=== PATIENT | female | born 1965 | race Caucasian/White ===

== ENCOUNTER 2017-09-21 17:44 | Emergency (ER) | payer OTHER ==
--- NOTE | 2017-09-21 17:54 | PDOC ---
Rapid Medical Evaluation Time Seen by Provider: 09/21/17 17:50 Medical Evaluation: Allergies Allergy/AdvReac Type Severity Reaction Status Date / Time No Known Drug Allergies Allergy Verified 12/23/12 14:53 I have performed a brief in-person evaluation of this patient. The patient presents with a chief complaint of: suprapubic, LLQ pain and diarrhea x 4 days Pertinent physical exam findings: suprapubic pain with palpation I have ordered the following: UA/culture, labs The patient will proceed to the ED for further evaluation.
[2017-09-21 17:55] VITALS: BP 124/76; PULSE 77; TEMP 98.1; BMI 31.9
[2017-09-21 18:09] LABS: BASO % 1.3 % (0-2.0); EOS % 3.3 % (0-4.5); HEMATOCRIT 42.2 % (32.4-45.2); MCH 28.9 pg (25.7-33.7); MCHC 33.1 g/dl (32.0-36.0); MEAN CELL VOLUME 87.1 fl (80-96); MEAN PLT VOLUME 9.3 fl (7.5-11.1); MONO % 4.8 % (3.8-10.2); NEUT % 55.6 % (42.8-82.8); PLATELET COUNT 208 K/MM3 (134-434); RBC 4.84 M/mm3 (3.60-5.2)
[2017-09-21 18:38] LABS: URINE APPEARANCE CLEAR; URINE BILIRUBIN NEGATIVE (NEGATIVE); URINE BLOOD NEGATIVE (NEGATIVE); URINE COLOR YELLOW; URINE GLUCOSE (UA) NEGATIVE (NEGATIVE); URINE KETONE TRACE (NEGATIVE); URINE LEUK ESTERASE NEGATIVE (NEGATIVE); URINE NITRITE NEGATIVE (NEGATIVE); URINE PROTEIN NEGATIVE (NEGATIVE); URINE UROBILINOGEN NEGATIVE mg/dL (0.2-1.0)
[2017-09-21 18:57] LABS: ALBUMIN 3.8 g/dl (3.4-5.0); ALK PHOS 132 U/L (45-117); ANION GAP 7 (8-16); BILIRUBIN,TOTAL 0.7 mg/dL (0.2-1.0); BLOOD UREA NITROGEN 12 mg/dL (7-18); CALCIUM 8.2 mg/dL (8.5-10.1); CHLORIDE 109 mmol/L (98-107); CO2 25 mmol/L (21-32); CREATININE 0.9 mg/dL (0.55-1.02); GLUCOSE,RANDOM 93 mg/dL (74-106); POTASSIUM 4.1 mmol/L (3.5-5.1); SGOT/AST 34 U/L (15-37); SGPT/ALT 35 U/L (12-78); SODIUM 141 mmol/L (136-145); TOT PROT 7.4 g/dl (6.4-8.2)
[2017-09-21] MEDS ORDERED: morphine CARPU-JECT 4 MG/1 ML DISP.SYRIN IVPUSH ONE (19:17)
[2017-09-21] MEDS ORDERED: SODIUM CHLORIDE 1,000 ML IV STA (19:17)
--- NOTE | 2017-09-21 19:21 | PDOC ---
History of Present Illness - General History Source: Patient Exam Limitations: No Limitations - History of Present Illness Initial Comments: 09/21/17 20:33 The patient is a 52 year old female, with a significant past medical history of hypertension, diabetes, chronic back pain, ovarian cysts, and gastritis, who presents to the emergency department with, four days of left lower quadrant pain. The patient describes her left lower quadrant pain as constant. Secondary to her symptoms, she reports a lack of appetite, soft stools, and a subjective fever. She denies recent chills, headache or dizziness. She denies recent nausea, vomit , or constipation. She denies recent dysuria, frequency, urgency or hematuria. She denies recent chest pain or shortness of breath. Allergies: NKA Social history: Nonsmoker. Denies EtOH use and recreational drug use. <Alexi Parada - Last Filed: 09/21/17 20:33> - General History Source: Patient, Family Exam Limitations: No Limitations <Chucho Curtis - Last Filed: 09/21/17 21:25> - General Chief Complaint: Pain, Acute Stated Complaint: ABD PAIN Time Seen by Provider: 09/21/17 17:50 Past History <Alexi Parada - Last Filed: 09/21/17 20:33> - Past Medical History Anemia: No Asthma: No Cancer: No Cardiac Disorders: No CVA: No COPD: No CHF: No Dementia: No Diabetes: No GI Disorders: Yes (GERD) Disorders: No HTN: Yes Hypercholesterolemia: No Liver Disease: No Seizures: No Thyroid Disease: No - Surgical History Abdominal Surgery: Yes (HERNIAS) Appendectomy: Yes Cardiac Surgery: No Cholecystectomy: Yes Lung Surgery: No Neurologic Surgery: No Orthopedic Surgery: Yes - Suicide/Smoking/Psychosocial Hx Smoking Status: Yes Smoking History: Current every day smoker Have you smoked in the past 12 months: Yes Number of Cigarettes Smoked Daily: 3 Information on smoking cessation initiated: No 'Breaking Loose' booklet given: 09/11/12 Hx Alcohol Use: Yes (RARELY) Drug/Substance Use Hx: No Substance Use Type: Alcohol Hx Substance Use Treatment: No <Chucho Curtis - Last Filed: 09/21/17 21:25> - Past Medical History Allergies/Adverse Reactions: Allergies Allergy/AdvReac Type Severity Reaction Status Date / Time No Known Drug Allergies Allergy Verified 09/21/17 17:51 Home Medications: Ambulatory Orders Candesartan Cilexetil [Atacand] 16 mg PO DAILY #0 09/12/12 Ibuprofen [Motrin -] 800 mg PO DAILY #0 09/12/12 Omeprazole [Prilosec (RX)] 40 mg PO DAILY #0 09/12/12 Ciprofloxacin [Cipro -] 500 mg PO Q12H #20 tablet 09/21/17 Metronidazole [Flagyl -] 500 mg PO Q8H #30 tablet 09/21/17 Naproxen 500 mg PO BID PRN #20 tablet 09/21/17 Oxycodone HCl/Acetaminophen [Percocet 5-325 mg Tablet] 1 tab PO Q6H PRN #15 tablet MDD 4 09/21/17 Review of Systems - Review of Systems Able to Perform ROS?: Yes Comments:: 09/21/17 20:33 GENERAL/CONSTITUTIONAL:+Subjective fever. +Lack of appetite. No chills. No weakness. HEAD, EYES, EARS, NOSE AND THROAT: No change in vision. No ear pain or discharge. No sore throat. CARDIOVASCULAR: No chest pain or shortness of breath. RESPIRATORY: No cough, wheezing, or hemoptysis. GASTROINTESTINAL: No nausea, vomiting, diarrhea or constipation. GENITOURINARY: No dysuria, frequency, or change in urination. MUSCULOSKELETAL: No joint or muscle swelling or pain. No neck or back pain. ABDOMEN: +Left lower quadrant pain. SKIN: No rash NEUROLOGIC: No headache, vertigo, loss of consciousness, or change in strength/ sensation. ENDOCRINE: No increased thirst. No abnormal weight change. HEMATOLOGIC/LYMPHATIC: No anemia, easy bleeding, or history of blood clots. ALLERGIC/IMMUNOLOGIC: No hives or skin allergy. All Other Systems: Reviewed and Negative <Alexi Parada - Last Filed: 09/21/17 20:33> *Physical Exam - Vital Signs Last Vital Signs Temp Pulse Resp BP Pulse Ox 98.1 F 77 18 124/76 99 09/21/17 17:52 09/21/17 17:52 09/21/17 17:52 09/21/17 17:52 09/21/17 17:52 - Physical Exam Comments: 09/21/17 20:34 GENERAL: +Uncomfortably appearing. Awake, alert, and fully oriented HEAD: No signs of trauma EYES: PERRLA, EOMI, sclera anicteric, conjunctiva clear NECK: Normal ROM, supple, no lymphadenopathy, JVD, or masses LUNGS: Breath sounds equal, clear to auscultation bilaterally. No wheezes, and no crackles HEART: Regular rate and rhythm, normal S1 and S2, no murmurs, rubs or gallops ABDOMEN: +Left lower quadrant pain to palpation. Soft, normoactive bowel sounds. No guarding, no rebound. No masses EXTREMITIES: Normal range of motion, no edema. No clubbing or cyanosis. No cords, erythema, or tenderness NEUROLOGICAL: Cranial nerves II through XII grossly intact. Normal speech. SKIN: Warm, Dry, normal turgor, no rashes or lesions noted. <Alexi Parada - Last Filed: 09/21/17 20:33> - Vital Signs Last Vital Signs Temp Pulse Resp BP Pulse Ox 98.1 F 77 18 124/76 99 09/21/17 17:52 09/21/17 17:52 09/21/17 17:52 09/21/17 17:52 09/21/17 17:52 <Chucho Curtis - Last Filed: 09/21/17 21:25> ED Treatment Course - LABORATORY CBC & Chemistry Diagram: 09/21/17 18:03 09/21/17 18:03 - ADDITIONAL ORDERS Additional order review: Laboratory Results 09/21/17 09/21/17 18:07 18:03 Sodium 141 Potassium 4.1 Chloride 109 H Carbon Dioxide 25 Anion Gap 7 L BUN 12 Creatinine 0.9 Creat Clearance w eGFR > 60 Random Glucose 93 Calcium 8.2 L Total Bilirubin 0.7 AST 34 ALT 35 Alkaline Phosphatase 132 H Total Protein 7.4 Albumin 3.8 Urine Color Yellow Urine Appearance Clear Urine pH 5.0 Ur Specific [place] 1.025 Urine Protein Negative Urine Glucose (UA) Negative Urine Ketones Trace H Urine Blood Negative Urine Nitrite Negative Urine Bilirubin Negative Urine Urobilinogen Negative Ur Leukocyte Esterase Negative 09/21/17 18:03 RBC 4.84 MCV 87.1 MCHC 33.1 RDW 14.0 MPV 9.3 Neutrophils % 55.6 Lymphocytes % 35.0 Monocytes % 4.8 Eosinophils % 3.3 Basophils % 1.3 - Medications Given in the ED: ED Medications Discontinued Medications Generic Name Dose Route Start Last Admin Trade Name Lisa PRN Reason Stop Dose Admin Sodium Chloride 1,000 mls @ 1,000 mls/hr 09/21/17 19:17 09/21/17 19:33 Normal Saline - IV 09/21/17 20:16 Not Given ASDIR STA Lactated Ringer's 1,000 ml 09/21/17 19:22 09/21/17 19:33 Lactated Ringers Solution IV 09/21/17 19:23 1,000 ml ONCE ONE Administration Morphine Sulfate 4 mg 09/21/17 19:17 09/21/17 19:36 Morphine Injection - IVPUSH 09/21/17 19:18 4 mg ONCE ONE Administration <Alexi Parada - Last Filed: 09/21/17 20:33> - LABORATORY CBC & Chemistry Diagram: 09/21/17 18:03 09/21/17 18:03 - ADDITIONAL ORDERS Additional order review: Laboratory Results 09/21/17 09/21/17 18:07 18:03 Sodium 141 Potassium 4.1 Chloride 109 H Carbon Dioxide 25 Anion Gap 7 L BUN 12 Creatinine 0.9 Creat Clearance w eGFR > 60 Random Glucose 93 Calcium 8.2 L Total Bilirubin 0.7 AST 34 ALT 35 Alkaline Phosphatase 132 H Total Protein 7.4 Albumin 3.8 Urine Color Yellow Urine Appearance Clear Urine pH 5.0 Ur Specific [place] 1.025 Urine Protein Negative Urine Glucose (UA) Negative Urine Ketones Trace H Urine Blood Negative Urine Nitrite Negative Urine Bilirubin Negative Urine Urobilinogen Negative Ur Leukocyte Esterase Negative 09/21/17 18:03 RBC 4.84 MCV 87.1 MCHC 33.1 RDW 14.0 MPV 9.3 Neutrophils % 55.6 Lymphocytes % 35.0 Monocytes % 4.8 Eosinophils % 3.3 Basophils % 1.3 - RADIOLOGY Radiology Studies Ordered: Category Date Time Status ABDOMEN & PELVIS CT WITH CONTR [CT] Stat CT Scan 09/21/17 19:17 Ordered <Chucho Curtis - Last Filed: 09/21/17 21:25> Medical Decision Making - Medical Decision Making 09/21/17 19:19 A portion of this note was written by my scribe, under my supervision. Vital Signs Temp Pulse Resp BP Pulse Ox 98.1 F 77 18 124/76 99 09/21/17 17:52 09/21/17 17:52 09/21/17 17:52 09/21/17 17:52 09/21/17 17:52 52 year old female c/ pmh HTN, DM, chronic back pain, gastritis p/w LLQ pain x 4 days. The patient has been endorsing left lower quadrant pain that is constant , difficult to describe. Reports worsening appetite. Has had numerous soft stools without blood. Denies nausea, vomiting. Reports tactile fevers. Denies dysuria. States she also has a history of ovarian cysts in the past, but is unsure if this pain is similar. Will need to r/o diverticulitis, colitis, vs. ovarian cyst rupture. Labs and UA reviewed. CT abdomen and pelvis pending. 09/21/17 21:16 CAT scan demonstrates uncomplicated acute sigmoid diverticulitis. We'll discharge we'll discharge with ciprofloxacin and Flagyl. Patient will go home with son. I discussed the physical exam findings, ancillary test results and final diagnoses with the patient. I answered all of the patient's questions. The patient was satisfied with the care received and felt comfortable with the discharge plan and treatment plan. The patient will call their primary care physician within 24 hours to arrange follow-up and will return to the Emergency Department with any new, persistant or worsening symptoms. <Chucho Curtis - Last Filed: 09/21/17 21:25> *DC/Admit/Observation/Transfer - Attestations Scribe Attestion: 09/21/17 20:37 Documentation prepared by Alexi Parada, acting as medical record retrieval specialist for Chucho Curtis MD. <Alexi Parada - Last Filed: 09/21/17 20:33> - Discharge Dispostion Admit: No <Chucho Curtis - Last Filed: 09/21/17 21:25> Diagnosis at time of Disposition: Diverticulitis - Discharge Dispostion Disposition: HOME Condition at time of disposition: Improved - Prescriptions Prescriptions: Ciprofloxacin [Cipro -] 500 mg PO Q12H #20 tablet Metronidazole [Flagyl -] 500 mg PO Q8H #30 tablet Naproxen 500 mg PO BID PRN #20 tablet PRN Reason: Pain/Fever Oxycodone HCl/Acetaminophen [Percocet 5-325 mg Tablet] 1 tab PO Q6H PRN #15 tablet MDD 4 PRN Reason: Severe Pain - Referrals Referrals: Santiago Armando DO [Staff Physician] - - Patient Instructions Printed Discharge Instructions: DI for Diverticulitis Additional Instructions: Please take the medications as prescribed. Take the ciprofloxacin and flagyl as prescribed for 10 days. Please complete the medications. Follow up with your doctors. Print Language: TAJIK
[2017-09-21] MEDS ORDERED: LACTATED RINGERS SOLUTION 1000 ML INFUS.BAG IV ONE (19:22)
[2017-09-21] MEDS ORDERED: MORPHINE SULFATE 10 MG/1 ML *VIAL ONE (19:32)
[2017-09-21] MEDS ORDERED: metroNIDAZOLE 250 MG TABLET PO ONE (21:17)
[2017-09-21] MEDS ORDERED: LEVOFLOXACIN 500 MG TABLET (FP) PO ONE (21:17)
[2017-09-21] MEDS ORDERED: metroNIDAZOLE 250 MG TABLET ONE (21:33)
[2017-09-21] MEDS ORDERED: LEVOFLOXACIN 500 MG TABLET (FP) ONE (21:33)
== END 2017-09-21 21:41 | disposition home or self-care (01) ==
LOC: JER 17:44
PROC: 3E033NZ Introduction of Analgesics, Hypnotics, Sedatives into Peripheral Vein, Percutaneous Approach (ICD-10-PCS; principal; 2017-09-21)
DX: K57.32 Diverticulitis of large intestine without perforation or abscess without bleeding (principal); I10 Essential (primary) hypertension; E11.9 Type 2 diabetes mellitus without complications; M54.89 Other dorsalgia; G89.29 Other chronic pain; Z87.42 Personal history of other diseases of the female genital tract
CPT/HCPCS: 36415; 74177-TC; 80053; 81003; 85025; 87086; 96374; 99283-25

== ENCOUNTER 2018-06-21 01:05 | Observation (INO) | payer OTHER ==
[2018-06-21] MEDS ORDERED: morphine CARPU-JECT 2 MG/1 ML DISP.SYRIN IVPUSH ONE (01:35)
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
[2018-06-21] MEDS ORDERED: diazePAM CARPU-JECT 10 MG/2 ML DISP.SYRIN IVPUSH ONE (01:51)
[2018-06-21] MEDS ORDERED: MORPHINE SULFATE 2 MG/ML VIAL ONE (02:30)
[2018-06-21] MEDS ORDERED: diazePAM 5 MG TABLET PO ONE (02:40)
[2018-06-21] MEDS ORDERED: diazePAM 5 MG TABLET ONE (02:43)
[2018-06-21 03:51] LABS: ANION GAP 9 MMOL/L (8-16); BLOOD UREA NITROGEN 15 mg/dL (7-18); CALCIUM 9.2 mg/dL (8.5-10.1); CHLORIDE 108 mmol/L (98-107); CO2 25 mmol/L (21-32); CREATININE 0.5 mg/dL (0.55-1.3); GLUCOSE,RANDOM 97 mg/dL (74-106); SODIUM 141 mmol/L (136-145)
[2018-06-21] MEDS ORDERED: morphine CARPU-JECT 4 MG/1 ML DISP.SYRIN IVPUSH ONE (04:35)
[2018-06-21] MEDS ORDERED: morphine SULFATE 4 MG/ML VIAL ONE (05:19)
[2018-06-21] MEDS ORDERED: KETOROLAC TROMETHAMINE 30 MG/1 ML VIAL IM ONE (08:53)
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
--- NOTE | 2018-06-21 10:44 | EKG ---
Test Reason : Blood Pressure : / mmHG Vent. Rate : 082 BPM Atrial Rate : 082 BPM P-R Int : 146 ms QRS Dur : 074 ms QT Int : 408 ms P-R-T Axes : 034 -14 027 degrees QTc Int : 476 ms NORMAL SINUS RHYTHM SEPTAL INFARCT , AGE UNDETERMINED NONSPECIFIC ST ABNORMALITY NO PREVIOUS ECGS AVAILABLE Confirmed by AZAR CARIAS MD ([id number]) on 06/21/2018 10:44:26 AM Referred By: Confirmed By:AZAR CARIAS MD
[2018-06-21] MEDS ORDERED: NAPROXEN 500 MG TABLET (FP) PO PRN (13:42)
[2018-06-21] MEDS ORDERED: ACETAMINOPHEN 325 MG TABLET (FP) PO PRN (13:43)
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
[2018-06-21 18:20] VITALS: BMI 32.2
[2018-06-21] MEDS: ACETAMINOPHEN 325 MG TABLET (FP) PO PRN (21:42)
[2018-06-22] MEDS: ACETAMINOPHEN 325 MG TABLET (FP) PO PRN (06:35)
[2018-06-22 06:48] VITALS: PULSE 65
[2018-06-22] MEDS ORDERED: LIDOCAINE 5% TOPICAL PATCH TP SCH ×2 (10:00)
[2018-06-22] MEDS ORDERED: VALSARTAN 160 MG TABLET (UD) PO SCH (10:00)
[2018-06-22] MEDS ORDERED: PANTOPRAZOLE 40 MG TABLET (FP) PO SCH (10:00)
[2018-06-22 10:33] LABS: BASO % 0.6 % (0-2.0); EOS % 4.2 % (0-4.5); HEMOGLOBIN 13.5 GM/dL (10.7-15.3); LYMPH % 31.1 % (8-40); MCH 30.1 pg (25.7-33.7); MCHC 34.6 g/dl (32.0-36.0); MEAN CELL VOLUME 87.1 fl (80-96); MEAN PLT VOLUME 9.1 fl (7.5-11.1); MONO % 4.6 % (3.8-10.2); NEUT % 59.5 % (42.8-82.8); PLATELET COUNT 199 K/MM3 (134-434); RBC 4.48 M/mm3 (3.60-5.2); RDW 13.8 % (11.6-15.6); WHITE BLOOD COUNT 6.4 K/mm3 (4.0-10.0)
[2018-06-22 11:18] LABS: ALBUMIN 3.3 g/dl (3.4-5.0); ALK PHOS 129 U/L (45-117); ANION GAP 9 MMOL/L (8-16); BILIRUBIN,TOTAL 0.4 mg/dL (0.2-1); BLOOD UREA NITROGEN 13 mg/dL (7-18); CALCIUM 8.6 mg/dL (8.5-10.1); CHLORIDE 110 mmol/L (98-107); CO2 23 mmol/L (21-32); CREATININE 0.6 mg/dL (0.55-1.3); GLUCOSE,RANDOM 147 mg/dL (74-106); SGOT/AST 48 U/L (15-37); SGPT/ALT 76 U/L (13-61); SODIUM 142 mmol/L (136-145); TOT PROT 6.5 g/dl (6.4-8.2)
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
[2018-06-22 15:08] VITALS: BP 115/64; TEMP 98.2
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
[2018-06-22] MEDS ORDERED: LIDOCAINE PATCH REMOVAL MC SCH (22:00)
== END 2018-06-22 18:03 | disposition home or self-care (01) ==
LOC: JER 01:05 → JERBED 13:15 → J6S 17:00
PROVIDERS: ADMIT Internal Medicine; ATTEND Nurse Practitioner Family
PROC: 3E0333Z Introduction of Anti-inflammatory into Peripheral Vein, Percutaneous Approach (ICD-10-PCS; principal; 2018-06-21)
PROC: 3E033NZ Introduction of Analgesics, Hypnotics, Sedatives into Peripheral Vein, Percutaneous Approach (ICD-10-PCS; 2018-06-21)
DX: S39.012A Strain of muscle, fascia and tendon of lower back, initial encounter (principal); R07.9 Chest pain, unspecified; I10 Essential (primary) hypertension; K21.9 Gastro-esophageal reflux disease without esophagitis; V43.62XA Car passenger injured in collision with other type car in traffic accident, initial encounter; Y93.89 Activity, other specified; Y92.410 Unspecified street and highway as the place of occurrence of the external cause
CPT/HCPCS: 36415; 70450-TC; 71260-TC; 71275-TC; 72125-TC; 80048; 80053; 82550; 84484; 85025; 93005; 93010; 96374; 96375; 96376; 99285-25; G0378

== ENCOUNTER 2019-04-29 16:18 | Emergency (ER) | payer OTHER | END 2019-04-29 18:35 | disposition home or self-care (01) | LOC: JERFT 16:18 ==

== ENCOUNTER 2019-05-11 11:51 | Emergency (ER) | payer OTHER ==
[2019-05-11 12:04] VITALS: BMI 34.0
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
[2019-05-11] MEDS ORDERED: morphine CARPU-JECT 4 MG/1 ML DISP.SYRIN IVPUSH ONE (12:54)
[2019-05-11] MEDS ORDERED: morphine SULFATE 4 MG/ML VIAL ONE (13:08)
--- NOTE | 2019-05-11 15:17 | PDOC ---
Attending Attestation - Resident Resident Name: Moshe Strong - ED Attending Attestation I have performed the following: I have examined & evaluated the patient, The case was reviewed & discussed with the resident, I agree w/resident's findings & plan, Exceptions are as noted - HPI HPI: 05/11/19 15:15 54 F with h/o herniated disc presents to ED with lower back pain. Pt states that she sat up suddenly in bed this morning and had sudden onset low back pain. Pt states it radiates down both legs. Denies any weakness/numbness in either leg. Denies saddle anesthesia or incontinence. Pt states that she has been able to ambulate normally. - Physicial Exam PE: 05/11/19 15:16 "GENERAL: Awake, alert, and fully oriented, in no acute distress. HEAD: No signs of trauma EYES: PERRLA, EOMI, sclera anicteric, conjunctiva clear ENT: Auricles normal inspection, hearing grossly normal, nares patent, oropharynx clear without exudates. Moist mucosa NECK: Nontender, no stepoffs, Normal ROM, supple, no lymphadenopathy, JVD, or masses LUNGS: Breath sounds equal, clear to auscultation bilaterally. No wheezes, and no crackles HEART: Regular rate and rhythm, normal S1 and S2, no murmurs, rubs or gallops ABDOMEN: Soft, nontender, normoactive bowel sounds. No guarding, no rebound. No masses EXTREMITIES: Normal range of motion, no edema. No clubbing or cyanosis. No cords, erythema, or tenderness NEUROLOGICAL: Cranial nerves II through XII intact. 5/5 strength and sensation in all extremities, Normal speech, normal gait, normal cerebellar function SKIN: Warm, Dry, normal turgor, no rashes or lesions noted. - Medical Decision Making 05/11/19 15:16 54 F with lower back pain. Likely lumbar radiculopathy. Benign exam, no neuro deficits to suggest cauda equina/cord compression. - Pain control 05/11/19 16:55 Pt reassessed - continues to have severe pain, though improved, despite 2 rounds of morphine. Will administer 2 percocets and reassess
[2019-05-11] MEDS ORDERED: KETOROLAC TROMETHAMINE 15 MG/ML VIAL IVPUSH ONE (15:35)
[2019-05-11] MEDS ORDERED: KETOROLAC TROMETHAMINE 15 MG/ML VIAL ONE (15:42)
[2019-05-11 16:17] LABS: URINE APPEARANCE CLEAR; URINE BILIRUBIN NEGATIVE (NEGATIVE); URINE COLOR YELLOW; URINE GLUCOSE (UA) NEGATIVE (NEGATIVE); URINE KETONE NEGATIVE (NEGATIVE); URINE LEUK ESTERASE NEGATIVE (NEGATIVE); URINE NITRITE NEGATIVE (NEGATIVE); URINE PROTEIN NEGATIVE (NEGATIVE); URINE UROBILINOGEN 0.2 mg/dL (0.2-1.0)
[2019-05-11] MEDS ORDERED: oxyCODONE HCL 10 MG SUSTAINED ACTING TABLET PO ONE (17:05)
[2019-05-11] MEDS ORDERED: LIDOCAINE 5% TOPICAL PATCH TP ONE (17:07)
[2019-05-11] MEDS ORDERED: DEXAMETHASONE SOD PHOSPHATE 10 MG/1 ML VIAL IVPUSH ONE (17:07)
[2019-05-11] MEDS ORDERED: oxyCODONE HCL 10 MG SUSTAINED ACTING TABLET ONE (17:23)
[2019-05-11] MEDS ORDERED: DEXAMETHASONE SOD PHOSPHATE 10 MG/1 ML VIAL ONE (17:56)
[2019-05-11] MEDS ORDERED: LIDOCAINE 5% TOPICAL PATCH ONE (17:56)
[2019-05-11] MEDS ORDERED: diphenhydrAMINE HCL 25 MG CAPSULE (FP) PO ONE ×2 (18:15→18:34)
[2019-05-11 19:04] VITALS: BP 131/78; PULSE 88; TEMP 97.8
[2019-05-11] MEDS ORDERED: LIDOCAINE PATCH REMOVAL MC SCH (22:00)
== END 2019-05-11 19:15 | disposition home or self-care (01) ==
LOC: JER 11:51
PROC: 3E033NZ Introduction of Analgesics, Hypnotics, Sedatives into Peripheral Vein, Percutaneous Approach (ICD-10-PCS; principal; 2019-05-11)
PROC: 3E0333Z Introduction of Anti-inflammatory into Peripheral Vein, Percutaneous Approach (ICD-10-PCS; 2019-05-11)
PROC: 3E033NZ Introduction of Analgesics, Hypnotics, Sedatives into Peripheral Vein, Percutaneous Approach (ICD-10-PCS; 2019-05-11)
DX: M54.42 Lumbago with sciatica, left side (principal)
CPT/HCPCS: 72100-TC-FY; 81003; 87086; 96374; 96375; 99283-25; J1100

== ENCOUNTER 2020-12-21 22:06 | Inpatient (IN) | payer OTHER ==
[2020-12-21] MEDS ORDERED: METOPROLOL TARTRATE 5 MG/5 ML VIAL IVPUSH ONE (22:18)
[2020-12-21] MEDS ORDERED: METOPROLOL TARTRATE 5 MG/5 ML VIAL ONE (22:25)
[2020-12-21 22:35] LABS: BASO % 2.4 % (0-2.0); EOS % 2.7 % (0-4.5); HEMATOCRIT 45.1 % (32.4-45.2); HEMOGLOBIN 14.9 GM/dl (10.7-15.3); LYMPH % 25.9 % (8-40); MCH 30.1 pg (25.7-33.7); MEAN CELL VOLUME 91.2 fl (80-96); MEAN PLT VOLUME 8.7 fl (7.5-11.1); MONO % 3.1 % (3.8-10.2); NEUT % 65.9 % (42.8-82.8); PLATELET COUNT 233 K/MM3 (134-434); RBC 4.94 M/mm3 (3.60-5.2); WHITE BLOOD COUNT 10.5 K/mm3 (4.0-10.8)
[2020-12-21 22:37] LABS: INR 1.17 (0.82-1.09)
[2020-12-21 22:42] LABS: ALBUMIN 3.7 g/dl (3.4-5.0); ALK PHOS 88 U/L (45-117); ANION GAP 7 MMOL/L (8-16); BILIRUBIN,TOTAL 0.9 mg/dl (0.2-1); CALCIUM 8.9 mg/dl (8.5-10); CHLORIDE 111 mmol/L (98-107); CO2 25 mmol/L (21-32); CREATININE 0.7 mg/dl (0.55-1.3); GLUCOSE,RANDOM 129 mg/dl (74-106); SGOT/AST 30 U/L (15-37); SGPT/ALT 26 U/L (13-61); SODIUM 143 mmol/L (136-145); TOT PROT 6.5 g/dl (6.4-8.2)
[2020-12-21] MEDS ORDERED: ASPIRIN 325 MG TABLET ONE (22:53)
[2020-12-21] MEDS ORDERED: ASPIRIN 325 MG TABLET PO ONE (22:53)
[2020-12-21] MEDS ORDERED: SODIUM CHLORIDE 1,000 ML IV ONE (22:53)
[2020-12-21] MEDS ORDERED: morphine CARPU-JECT 4 MG/1 ML DISP.SYRIN IVPUSH ONE (23:49)
[2020-12-21] MEDS ORDERED: ACETAMINOPHEN INJECTION 100 ML IVPB ONE (23:51)
[2020-12-21] MEDS ORDERED: ACETAMINOPHEN 1000 MG/100 ML VIAL (NON FORMULARY) IVPB ONE (23:52)
[2020-12-22 02:37] LABS: PH,URINE 5.5 (5.0-8.0); URINE APPEARANCE CLEAR; URINE BILIRUBIN NEGATIVE (NEGATIVE); URINE COLOR YELLOW; URINE GLUCOSE (UA) NEGATIVE (NEGATIVE); URINE KETONE NEGATIVE (NEGATIVE); URINE LEUK ESTERASE NEGATIVE (NEGATIVE); URINE NITRITE NEGATIVE (NEGATIVE); URINE PROTEIN NEGATIVE (NEGATIVE); URINE UROBILINOGEN 0.2 mg/dL (0.2-1.0)
[2020-12-22 03:49] VITALS: BMI 32.1
[2020-12-22] MEDS ORDERED: METOPROLOL TARTRATE 5 MG/5 ML VIAL IVPUSH PRN (04:26)
[2020-12-22] MEDS: PANTOPRAZOLE 40 MG TABLET PO SCH (06:14)
[2020-12-22 08:03] LABS: BASO % 0.7 % (0-2.0); EOS % 3.2 % (0-4.5); HEMATOCRIT 40.8 % (32.4-45.2); HEMOGLOBIN 13.8 GM/dl (10.7-15.3); LYMPH % 32.5 % (8-40); MCH 30.2 pg (25.7-33.7); MCHC 33.7 g/dl (32.0-36.0); MEAN CELL VOLUME 89.5 fl (80-96); MEAN PLT VOLUME 8.9 fl (7.5-11.1); MONO % 6.6 % (3.8-10.2); PLATELET COUNT 215 K/MM3 (134-434); RBC 4.57 M/mm3 (3.60-5.2); RDW 12.9 % (11.6-15.6)
[2020-12-22 08:18] LABS: INR 1.06 (0.82-1.09); PROTHROMBIN TIME (PATIENT) 11.8 SEC (10.2-13.0)
[2020-12-22 08:23] LABS: ALBUMIN 3.3 g/dl (3.4-5.0); ALK PHOS 93 U/L (45-117); ANION GAP 8 MMOL/L (8-16); BILIRUBIN,TOTAL 0.9 mg/dl (0.2-1); CALCIUM 8.8 mg/dl (8.5-10); CHLORIDE 108 mmol/L (98-107); CO2 24 mmol/L (21-32); CREATININE 0.6 mg/dl (0.55-1.3); GLUCOSE,RANDOM 99 mg/dl (74-106); MAGNESIUM 1.9 mg/dL (1.8-2.4); SGOT/AST 36 U/L (15-37); SGPT/ALT 30 U/L (13-61); SODIUM 140 mmol/L (136-145)
[2020-12-22 08:25] LABS: ACTIVATED PTT 27.1 SECONDS (25.2-36.5)
[2020-12-22] MEDS ORDERED: PATIENT'S OWN MEDICATION (NON-FORMULARY) (Omeprazole [Omeprazole] 20 MG Tablet.Dr) PO SCH (10:00)
[2020-12-22] MEDS ORDERED: ENOXAPARIN NA (PORCINE) 80 MG/0.8 ML DISP.SYRIN SQ ONE (10:31)
[2020-12-22] MEDS ORDERED: ENOXAPARIN NA (PORCINE) 100 MG/1 ML DISP.SYRIN SQ ONE (10:45)
[2020-12-22] MEDS: METOPROLOL TARTRATE 25 MG TABLET (FP) PO SCH ×2 (11:15→21:25)
[2020-12-22] MEDS ORDERED: ALBUTEROL SO4 2.5/IPRATROPIUM 0.5 INH SOL 3 ML VIAL.NEB. NEB SCH (14:00)
[2020-12-22] MEDS: ALBUTEROL SO4 2.5/IPRATROPIUM 0.5 INH SOL 3 ML VIAL.NEB. NEB SCH ×3 (14:18→19:57)
[2020-12-22] MEDS: APIXABAN 5 MG TABLET PO SCH ×2 (16:00→21:25)
[2020-12-22] MEDS: ACETAMINOPHEN 1000 MG/100 ML VIAL (NON FORMULARY) IVPB PRN ×2 (16:21→21:29)
[2020-12-23] MEDS: ACETAMINOPHEN 1000 MG/100 ML VIAL (NON FORMULARY) IVPB PRN ×2 (03:22→23:50)
[2020-12-23] MEDS ORDERED: metoPROLOL SUCCINATE 25 MG TAB.SR.24H (FP) PO ONE (06:26)
[2020-12-23] MEDS: PANTOPRAZOLE 40 MG TABLET PO SCH (06:34)
[2020-12-23] MEDS: ALBUTEROL SO4 2.5/IPRATROPIUM 0.5 INH SOL 3 ML VIAL.NEB. NEB SCH ×3 (07:32→21:06)
[2020-12-23 08:19] LABS: CALCIUM 9.1 mg/dl (8.5-10); CREATININE 0.7 mg/dl (0.55-1.3); MAGNESIUM 1.9 mg/dL (1.8-2.4)
[2020-12-23] MEDS: METOPROLOL TARTRATE 25 MG TABLET (FP) PO SCH (09:00)
[2020-12-23] MEDS: APIXABAN 5 MG TABLET PO SCH ×2 (09:42→21:06)
[2020-12-23] MEDS ORDERED: LOSARTAN POTASSIUM 25 MG TABLET PO SCH (10:00)
[2020-12-23] MEDS ORDERED: REGADENOSON 0.4 MG/5 ML PRE-FILLED SYRINGE IVPUSH ONE ×2 (10:00→13:12)
[2020-12-23] MEDS ORDERED: METOPROLOL TARTRATE 5 MG/5 ML VIAL ONE (13:21)
[2020-12-23] MEDS: METOPROLOL TARTRATE 5 MG/5 ML VIAL IVPUSH ONE ×2 (13:22→17:27)
[2020-12-23] MEDS: traMADol HCL 50 MG TABLET PO PRN ×2 (16:15→21:15)
[2020-12-23] MEDS: metoPROLOL SUCCINATE 25 MG TAB.SR.24H (FP) PO SCH (21:07)
[2020-12-23] MEDS ORDERED: METOPROLOL TARTRATE 5 MG/5 ML VIAL IVPUSH ONE (23:38)
[2020-12-24] MEDS ORDERED: SODIUM CHLORIDE 0.9% 500 ML INFUS.BAG IV ONE (02:15)
[2020-12-24 06:23] VITALS: TEMP 98.2
[2020-12-24] MEDS: PANTOPRAZOLE 40 MG TABLET PO SCH (06:34)
[2020-12-24] MEDS: ALBUTEROL SO4 2.5/IPRATROPIUM 0.5 INH SOL 3 ML VIAL.NEB. NEB SCH (08:32)
[2020-12-24] MEDS ORDERED: ACETAMINOPHEN 325 MG TABLET (FP) PO PRN (09:07)
[2020-12-24] MEDS: metoPROLOL SUCCINATE 25 MG TAB.SR.24H (FP) PO SCH (10:27)
[2020-12-24] MEDS: APIXABAN 5 MG TABLET PO SCH (10:27)
[2020-12-24 11:01] VITALS: BP 112/62; PULSE 78
== END 2020-12-24 17:05 | disposition home or self-care (01) | DRG 201 ==
LOC: FER 22:06 → FM/S 12-22 03:01
PROVIDERS: ADMIT Hospitalist; ATTEND Nurse Practitioner Family
DX: I48.91 Unspecified atrial fibrillation (principal); I48.92 Unspecified atrial flutter; I10 Essential (primary) hypertension; R07.1 Chest pain on breathing; E66.9 Obesity, unspecified; Z68.32 Body mass index [BMI] 32.0-32.9, adult; J45.909 Unspecified asthma, uncomplicated; K21.9 Gastro-esophageal reflux disease without esophagitis; F17.210 Nicotine dependence, cigarettes, uncomplicated
CPT/HCPCS: 36415; 71045-TC-FY; 71275-TC; 78452-TC; 80048; 80053; 81003; 82550; 83735; 84443; 84484; 85025; 85610; 85730; 93005; 93017; 93306-TC; 94640; 97116-GP; 97162-GP; 99285-25; A9502; C9803; J0131; J2785; Q9967; U0003; U0005

== ENCOUNTER 2021-06-11 15:12 | Emergency (ER) | payer OTHER ==
[2021-06-11 15:30] VITALS: TEMP 98.1; BMI 31.9
[2021-06-11] MEDS ORDERED: OXYMETAZOLINE 0.05% NASAL SOLUTION 15 ML BOTTLE NS ONE (17:58)
[2021-06-11 18:32] VITALS: BP 146/97; PULSE 89
== END 2021-06-11 18:32 | disposition home or self-care (01) ==
LOC: JER 15:12
DX: R04.0 Epistaxis (principal)
CPT/HCPCS: 99283-25

== ENCOUNTER 2022-06-11 15:08 | Emergency (ER) | payer OTHER ==
[2022-06-11 15:11] VITALS: BP 136/91; RESP 18; TEMP 98.1; BMI 34.2
[2022-06-11] MEDS ORDERED: IBUPROFEN 600 MG TABLET (FP) PO ONE ×2 (15:46→17:00)
[2022-06-11] MEDS ORDERED: ALBUTEROL SO4 HFA INHALER IH ONE (15:46)
[2022-06-11] MEDS ORDERED: ALBUTEROL SO4 0.083% IH SOL 2.5 MG/3 ML VIAL.NEB. NEB ONE (17:00)
[2022-06-11 17:16] VITALS: PULSE 99
[2022-06-11] MEDS ORDERED: predniSONE 20 MG TABLET (UD) PO ONE (18:29)
[2022-06-11] MEDS ORDERED: predniSONE 20 MG TABLET (UD) ONE (18:55)
== END 2022-06-11 20:24 | disposition home or self-care (01) ==
LOC: JER 15:08
PROC: 3E0F7GC Introduction of Other Therapeutic Substance into Respiratory Tract, Via Natural or Artificial Opening (ICD-10-PCS; principal; 2022-06-11)
DX: J40 Bronchitis, not specified as acute or chronic (principal); I48.11 Longstanding persistent atrial fibrillation
CPT/HCPCS: 0241U-QW; 71046-TC-FY; 93005; 93010; 99285-25

== ENCOUNTER 2023-11-28 04:11 | Day surgery (SDC) | payer OTHER ==
[2023-11-27 08:27] VITALS: BMI 35.5
[2023-11-28] MEDS ORDERED: MIDAZOLAM HCL 2 MG/2 ML SINGLE DOSE VIAL ONE (13:39)
[2023-11-28] MEDS ORDERED: PROPOFOL 20 ML ONE (13:39)
[2023-11-28] MEDS ORDERED: FENTANYL CITRATE/PF 50 MCG/ML VIAL ONE ×4 (13:39→16:16)
[2023-11-28] MEDS ORDERED: LIDOCAINE HCL/PF 2% SDV 5ML VIAL ONE (13:41)
[2023-11-28] MEDS ORDERED: DEXAMETHASONE SOD PHOSPHATE 4 MG/1 ML VIAL ONE (13:41)
[2023-11-28] MEDS ORDERED: ONDANSETRON 4 MG/2 ML VIAL ONE ×2 (13:41→17:02)
[2023-11-28] MEDS ORDERED: LACTATED RINGERS SOLUTION 1,000 ML IV SCH (13:45)
[2023-11-28] MEDS ORDERED: ceFAZolin SODIUM 1 GM VIAL ONE (14:29)
[2023-11-28] MEDS: ceFAZolin SODIUM 1 GM VIAL IVPB ONE (14:35)
[2023-11-28] MEDS ORDERED: PHENYLEPHRINE HCL 10 MG/1 ML SINGLE DOSE VIAL ONE (14:55)
[2023-11-28] MEDS: ONDANSETRON 4 MG/2 ML VIAL IVPUSH PRN (17:05)
[2023-11-28 18:08] VITALS: TEMP 97
[2023-11-28 18:15] VITALS: BP 125/75; PULSE 70; RESP 20
== END 2023-11-28 18:27 | disposition home or self-care (01) ==
LOC: JASU-SURG 04:11
PROVIDERS: ATTEND Obstetrics & Gynecology
PROC: 0UB98ZZ Excision of Uterus, Via Natural or Artificial Opening Endoscopic (ICD-10-PCS; principal; 2023-11-28 14:00)
DX: N95.0 Postmenopausal bleeding (principal); N84.0 Polyp of corpus uteri
CPT/HCPCS: 88305-TC; 94760